=== PATIENT | male | born 1995 | race Caucasian/White ===

== ENCOUNTER 2021-06-20 22:20 | Emergency (ER) | payer OTHER ==
[~2021-06-20] VITALS: Ht 182.9 cm; Wt 120.0 kg
[2021-06-20 22:23] VITALS: BP 163/115
--- NOTE | 2021-06-20 23:06 | NUR ---
ERP at bedside to evaluate pt.
== END 2021-06-20 23:41 | disposition home or self-care (01) ==
LOC: ER 22:21 → EDBD 22:21 → ER 23:41
DX: M85.831 Other specified disorders of bone density and structure, right forearm (principal); X58.XXXA Exposure to other specified factors, initial encounter; Y93.89 Activity, other specified; Y92.89 Other specified places as the place of occurrence of the external cause; Y99.8 Other external cause status
CPT/HCPCS: 29125; 73100; 99283